=== PATIENT | male | born 1990 | race Caucasian/White ===

== ENCOUNTER 2017-08-27 19:31 | Emergency (ER) | payer SELFPAY ==
[2017-08-27] MEDS ORDERED: Lidocaine 1% with EPINEPHrine 1:100,000 20 ML MDV INJECT ONE (19:44)
[2017-08-27] MEDS ORDERED: Diphtheria,Pertussis(Acell),Tetanus Vaccine 0.5 ML Syringe IM ONE (20:01)
--- NOTE | 2017-08-27 20:08 | EDM.PDOC ---
ED HPI GENERAL MEDICAL PROBLEM - General Chief Complaint: Laceration Stated Complaint: AMB Time Seen by Provider: 08/27/17 19:31 Source of Information: Reports: Patient History Limitations: Reports: No Limitations - History of Present Illness INITIAL COMMENTS - FREE TEXT/NARRATIVE: HISTORY AND PHYSICAL: []26-year-old male presenting per EMS after injury to his head History of Present Illness: []This gentleman was pressing weights and had 45 pounds up his highest could be slipped and the bar hit him in the head. Denies any loss of consciousness Has not had a tetanus vaccine since he was 16 Review of Systems: As per history of present illness and below otherwise all systems reviewed and negative. Past medical history: As per history of present illness and as reviewed below otherwise noncontributory. Surgical history: As per history of present illness and as reviewed below otherwise noncontributory. Social history: No reported history of drug or alcohol abuse. Family history: As per history of present illness and as reviewed below otherwise noncontributory. Physical exam: Alert and oriented young man who answers questions appropriately in full sentences without any shortness of breath. HEENT: Atraumatic, normocehpalic, pupils reactive, negative for conjunctival pallor or scleral icterus, mucous membranes moist, throat clear, neck supple, nontender, trachea midline. Right-sided forehead with a laceration 2 cm in length one centimeter deep. Lungs: Clear to auscultation, breath sounds equal bilaterally, chest non tender. Heart: S1S2, regular, negative for clicks, rubs, or JVD. Abdomen: Soft, nondistended, nontender. Negative for masses or hepatossplenmegaly. Negative for costovertebral tenderness. Pelvis: Stable nontender. Genitourinary: Deferred. Rectal: Deferred Extremities: Atraumatic, negative for cords or calf pain. Neurovascular unremarkable. Neuro: Awake, alert, oriented. Cranial nerves II through XII unremarkable. Cerebellum unremarkable. Motor and sensory unremarkable throughout. Exam nonfocal. Head CT was obtained and no fractures were noted Diagnostics: []head CT Therapeutics: [] Impression: []Laceration to forehead Head injury Plan: []Discharged home Sutures out in 7 days Follow-up with your primary care provider Return to the emergency room as needed as we discussed Definitive disposition and diagnosis as appropriate pending reevaluation and review of above. Onset: Today, Sudden Duration: Minutes: Location: Reports: Head Quality: Reports: Stabbing Severity: Mild Improves with: Reports: None Worsens with: Reports: None Associated Symptoms: Reports: No Other Symptoms forehead Pain Score (Numeric/FACES): 5 - Related Data Allergies Allergy/AdvReac Type Severity Reaction Status Date / Time No Known Allergies Allergy Verified 08/27/17 19:38 Home Meds: Home Meds . [No Known Home Meds] 08/27/17 [History] Past Medical History - Past Health History Medical/Surgical History: Denies Medical/Surgical History Social & Family History - Family History Family Medical History: Noncontributory - Tobacco Use Smoking Status *Q: Never Smoker - Recreational Drug Use Recreational Drug Use: No ED ROS GENERAL - Review of Systems Review Of Systems: ROS reveals no pertinent complaints other than HPI. ED EXAM, SKIN/RASH Exam: See Below (See dictation) ED SKIN PROCEDURES - Laceration/Wound Repair Right Forehead Lac/Wound length In cm: 2.5 Appearance: Subcutaneous Distal NVT: Neuro & Vascular Intact, No Tendon Injury Anesthetic Type: Local Local Anesthesia - Lidocaine (Xylocaine): 1% with EPI Local Anesthetic Volume: 4cc Skin Prep: Chlorhexidine (Hibiciens), Saline Exploration/Debridement/Repair: Wound Explored, In a Bloodless Field, Explored to Base Closed with: Sutures Suture Size: other (5-0) # of Sutures: 4 Suture Type: Interrupted, Other (Chromic) Drain Placement: No Sterile Dressing Applied: Nurse Tetanus Status Addressed: Yes Complications: No Course - Vital Signs Last Recorded V/S: Last Vital Signs Temp 36.8 C 08/27/17 19:31 Pulse 65 08/27/17 19:31 Resp 18 08/27/17 19:31 BP 140/96 H 08/27/17 19:31 Pulse Ox 99 08/27/17 19:31 - Orders/Labs/Meds Orders: Active Orders 24 hr Category Date Time Status Vaccines to be Administered [RC] PER UNIT ROUTINE Care 08/27/17 20:02 Active Head wo Cont [CT] Stat Exams 08/27/17 20:02 Taken Meds: Medications Discontinued Medications Generic Name Dose Route Start Last Admin Trade Name Freq PRN Reason Stop Dose Admin Diphtheria/Tetanus/Acell Pertussis 0.5 ml 08/27/17 20:01 08/27/17 20:09 Adacel IM 08/27/17 20:02 0.5 ml .ONCE ONE Administration Lidocaine/Epinephrine 20 ml 08/27/17 19:44 08/27/17 19:50 Xylocaine 1% With Epinephrine 1:100,000 INJECT 08/27/17 19:45 20 ml ONETIME ONE Administration Departure - Departure Time of Disposition: 20:37 Disposition: Home, Self-Care 01 Condition: Good Clinical Impression: Laceration - Discharge Information Instructions: Stitches, [place], or Adhesive Wound Closure, [id number] Forms: ED Department Discharge Additional Instructions: The following information is given to patients seen in the emergency department who are being discharged to home. This information is to outline your options for follow-up care. We provide all patients seen in our emergency department with a follow-up referral. The need for follow-up, as well as the timing and circumstances, are variable depending upon the specifics of your emergency department visit. If you don't have a primary care physician on staff, we will provide you with a referral. We always advise you to contact your personal physician following an emergency department visit to inform them of the circumstance of the visit and for follow-up with them and/or the need for any referrals to a consulting specialist. The emergency department will also refer you to a specialist when appropriate. This referral assures that you have the opportunity for followup care with a specialist. All of these measure are taken in an effort to provide you with optimal care, which includes your followup. Under all circumstances we always encourage you to contact your private physician who remains a resource for coordinating your care. When calling for followup care, please make the office aware that this follow-up is from your recent emergency room visit. If for any reason you are refused follow-up, please contact the [facility] emergency department at and asked to speak to the emergency department charge nurse. You have a laceration to forehead and a head contusion Sutures were placed in the emergency department they can be removed in one week Tylenol alternating with Motrin for discomfort Return to the emergency department as needed as discussed - My Orders Last 24 Hours: My Active Orders 08/27/17 20:02 Vaccines to be Administered [RC] PER UNIT ROUTINE Head wo Cont [CT] Stat - Assessment/Plan Last 24 Hours: My Active Orders 08/27/17 20:02 Vaccines to be Administered [RC] PER UNIT ROUTINE Head wo Cont [CT] Stat
--- NOTE | 2017-08-28 16:13 | CT ---
EXAM DATE: 08/27/17 PATIENT'S AGE: 26 Patient: JOSE MARIA MOLINA Facility: [facility], [place], [place] Site . Site : 1990 Study: CT Head WO CONT [id number]/25/2018 8:23:25 PM Ordering Physician: Doctor Haddad Final Report: INDICATION: PT STATES ABILIO FELL ON HEAD WHILE LIFTING AT THE GYM TODAY, LAC TO FOREHEAD AND NO LOC INDICATION: Head trauma and forehead laceration. TECHNIQUE: 3 mm axial imaging has been performed through the brain. Sagittal and coronal reconstructions have been obtained. FINDINGS: Ventricles, sulci, and cisterns are within normal limits. There is no mass lesion, midline shift, or intracerebral hemorrhage identified. Soft tissue swelling over the right forehead region is identified with associated laceration. No skull fracture is seen. The frontal sinus and paranasal sinuses appear clear. There is a small retention cyst within the left sphenoid sinus. Mastoid air cells are clear. IMPRESSION: Right forehead soft tissue swelling and laceration is identified. No acute intracerebral hemorrhage is identified. No skull fracture is seen. Dictated by Luc Padilla MD @ 08/27/2017 8:34:40 PM Dictated by: Luc Padilla MD @ 08/27/2017 20:34:59 (Electronic Signature) Report Signed by Proxy. IDA
== END 2017-08-27 20:52 | disposition home or self-care (01) ==
LOC: MW.ED 19:31
DX: S01.81XA Laceration without foreign body of other part of head, initial encounter (principal); S09.90XA Unspecified injury of head, initial encounter; Z23 Encounter for immunization; W22.8XXA Striking against or struck by other objects, initial encounter
CPT/HCPCS: 12011; 70450; 70450-26; 90471; 90715; 99282; 99283-25